=== PATIENT | female | born 1940 | race Caucasian/White ===

== ENCOUNTER 2016-12-20 17:42 | Inpatient (IN) | payer OTHER ==
--- NOTE | 2016-12-20 18:12 | PDOC ---
History of Present Illness - General History Source: Patient Exam Limitations: No Limitations - History of Present Illness Initial Comments: 12/20/16 19:05 The patient is a 76-year-old female with a significant past medical history of hypertension and diabetes, and was sent to the emergency department by her PCP for further evaluation of an abnormal EKG today. The patient states that she went to see Dr. Varma today, and he sent her to [facility] for further tests. The patient reports some chest pressure. The patient reports that the swelling in her legs may be related to a dislocated shoulder, but she has not paid much attention to the swelling. The patient denies shortness of breath, headache and dizziness. The patient denies fever, chills, nausea, vomit, diarrhea and constipation. The patient denies dysuria, frequency, urgency and hematuria. Allergies: NKDA PCP: Dr. Harpreet Fuller <Hortencia Ortez - Last Filed: 12/20/16 19:05> <Phyllis Goetz - Last Filed: 12/20/16 19:51> <Teresa Yoon - Last Filed: 12/20/16 21:03> <Nena Lee - Last Filed: 12/21/16 16:40> - General Chief Complaint: Pain, Acute Stated Complaint: PCP SENT/ADMIT/ADB PAIN Time Seen by Provider: 12/20/16 18:11 Past History <Hortencia Ortez - Last Filed: 12/20/16 19:05> <Phyllis Goezt - Last Filed: 12/20/16 19:51> <Teresa Yoon - Last Filed: 12/20/16 21:03> - Past Medical History HTN: Yes Hypercholesterolemia: Yes - Surgical History Cholecystectomy: Yes - Psycho/Social/Smoking Cessation Hx Suicidal Ideation: No Smoking History: Never smoked Information on smoking cessation initiated: No Hx Alcohol Use: No Drug/Substance Use Hx: No Substance Use Type: None <Nena Lee - Last Filed: 12/21/16 16:40> - Past Medical History Allergies/Adverse Reactions: Allergies Allergy/AdvReac Type Severity Reaction Status Date / Time No Known Allergies Allergy Verified 12/20/16 17:52 Home Medications: Ambulatory Orders Atorvastatin Ca [Lipitor] 10 mg PO HS 12/20/16 Amlodipine Besylate 5 mg PO DAILY 12/21/16 Losartan/Hydrochlorothiazide [Hyzaar 100-25 Tablet] 1 each PO DAILY 12/21/16 Review of Systems - Review of Systems Able to Perform ROS?: Yes Comments:: 12/20/16 19:05 GENERAL/CONSTITUTIONAL: No fever or chills. No weakness. HEAD, EYES, EARS, NOSE AND THROAT: No change in vision. No ear pain or discharge. No sore throat. CARDIOVASCULAR: (+) Chest pressure. No shortness of breath. RESPIRATORY: No cough, wheezing, or hemoptysis. GASTROINTESTINAL: No nausea, vomiting, diarrhea or constipation. GENITOURINARY: No dysuria, frequency, or change in urination. MUSCULOSKELETAL: No joint or muscle swelling or pain. No neck or back pain. SKIN: No rash NEUROLOGIC: No headache, vertigo, loss of consciousness, or change in strength/ sensation. ENDOCRINE: No increased thirst. No abnormal weight change. HEMATOLOGIC/LYMPHATIC: No anemia, easy bleeding, or history of blood clots. ALLERGIC/IMMUNOLOGIC: No hives or skin allergy. <Hortencia Ortez - Last Filed: 12/20/16 19:05> *Physical Exam - Vital Signs Last Vital Signs Temp Pulse Resp BP Pulse Ox 97.9 F 72 18 179/72 99 12/20/16 17:46 12/20/16 17:46 12/20/16 17:46 12/20/16 17:46 12/20/16 17:46 <Hortencia Ortez - Last Filed: 12/20/16 19:05> - Vital Signs Last Vital Signs Temp Pulse Resp BP Pulse Ox 97.9 F 72 18 179/72 99 12/20/16 17:46 12/20/16 17:46 12/20/16 17:46 12/20/16 17:46 12/20/16 17:46 <Phyllis Goetz - Last Filed: 12/20/16 19:51> - Vital Signs Last Vital Signs Temp Pulse Resp BP Pulse Ox 97.9 F 72 18 179/72 99 12/20/16 17:46 12/20/16 17:46 12/20/16 17:46 12/20/16 17:46 12/20/16 17:46 <Teresa Yoon - Last Filed: 12/20/16 21:03> - Vital Signs Last Vital Signs Temp Pulse Resp BP Pulse Ox 97.9 F 72 18 179/72 99 12/20/16 17:46 12/20/16 17:46 12/20/16 17:46 12/20/16 17:46 12/20/16 17:46 - Physical Exam Comments: GENERAL: Awake, alert, and fully oriented, in no acute distress HEAD: No signs of trauma EYES: PERRLA, EOMI, sclera anicteric, conjunctiva clear ENT: Auricles normal inspection, hearing grossly normal, nares patent, oropharynx clear without exudates. Moist mucosa NECK: Normal ROM, supple, no lymphadenopathy, JVD, or masses LUNGS: Breath sounds equal, clear to auscultation bilaterally. No wheezes, and no crackles HEART: Regular rate and rhythm, normal S1 and S2, no murmurs, rubs or gallops ABDOMEN: Soft, nontender, normoactive bowel sounds. No guarding, no rebound. No masses EXTREMITIES: Normal range of motion, 2+ pitting edema to ankles B/L. No clubbing or cyanosis. No cords, erythema, or tenderness NEUROLOGICAL: Cranial nerves II through XII grossly intact. Normal speech, normal gait SKIN: Warm, Dry, normal turgor, no rashes or lesions noted. <Nena Lee - Last Filed: 12/21/16 16:40> ED Treatment Course - LABORATORY CBC & Chemistry Diagram: 12/20/16 18:45 12/20/16 18:45 <Hortencia Ortez - Last Filed: 12/20/16 19:05> - LABORATORY CBC & Chemistry Diagram: 12/20/16 18:45 12/20/16 18:45 - ADDITIONAL ORDERS Additional order review: Laboratory Results 12/20/16 12/20/16 19:05 18:45 INR 1.14 Sodium 138 Potassium 3.7 Chloride 102 Carbon Dioxide 24 Anion Gap 12 BUN 22 H Creatinine 0.7 Creat Clearance w eGFR > 60 Random Glucose 130 H Calcium 8.9 Total Bilirubin 0.3 AST 24 ALT 26 Alkaline Phosphatase 85 Creatine Kinase 122 Troponin I < 0.02 Total Protein 7.4 Albumin 4.0 12/20/16 18:45 RBC 4.50 MCV 87.6 MCHC 33.0 RDW 14.4 MPV 9.9 Neutrophils % 71.5 Lymphocytes % 21.6 Monocytes % 5.2 Eosinophils % 1.0 Basophils % 0.7 - Medications Given in the ED: ED Medications Discontinued Medications Generic Name Dose Route Start Last Admin Trade Name Freq PRN Reason Stop Dose Admin Aspirin 325 mg 12/20/16 18:44 12/20/16 19:41 Asa - PO 12/20/16 18:45 325 mg ONCE ONE Administration <Phyllis Goetz - Last Filed: 12/20/16 19:51> - LABORATORY CBC & Chemistry Diagram: 12/20/16 18:45 12/20/16 18:45 - ADDITIONAL ORDERS Additional order review: Laboratory Results 12/20/16 12/20/16 12/20/16 20:05 19:05 18:45 INR 1.14 Sodium 138 Potassium 3.7 Chloride 102 Carbon Dioxide 24 Anion Gap 12 BUN 22 H Creatinine 0.7 Creat Clearance w eGFR > 60 Random Glucose 130 H Calcium 8.9 Total Bilirubin 0.3 AST 24 ALT 26 Alkaline Phosphatase 85 Creatine Kinase 122 Troponin I < 0.02 Total Protein 7.4 Albumin 4.0 Urine Color Straw Urine Appearance Cloudy Urine pH 5.0 Ur Specific [place] 1.014 Urine Protein Negative Urine Glucose (UA) Negative Urine Ketones Negative Urine Blood Negative Urine Nitrite Negative Urine Bilirubin Negative Urine Urobilinogen Negative Ur Leukocyte Esterase Negative 12/20/16 18:45 RBC 4.50 MCV 87.6 MCHC 33.0 RDW 14.4 MPV 9.9 Neutrophils % 71.5 Lymphocytes % 21.6 Monocytes % 5.2 Eosinophils % 1.0 Basophils % 0.7 - Medications Given in the ED: ED Medications Discontinued Medications Generic Name Dose Route Start Last Admin Trade Name Freq PRN Reason Stop Dose Admin Aspirin 325 mg 12/20/16 18:44 12/20/16 19:41 Asa - PO 12/20/16 18:45 325 mg ONCE ONE Administration <Teresa Yoon - Last Filed: 12/20/16 21:03> - LABORATORY CBC & Chemistry Diagram: 12/21/16 05:30 12/21/16 05:30 <Nena Lee - Last Filed: 12/21/16 16:40> Medical Decision Making - Medical Decision Making 12/20/16 20:45 First call placed to Dr. Ricardo at 20:44. Case discussed with Dr. Ricardo at 21:02. <Teresa Yoon - Last Filed: 12/20/16 21:03> - Medical Decision Making 12/20/16 19:[address] Goetz at shift change. Sent by Dr. Varma after she presented with chest pressure and was found to have a Wellen's sign on EKG. I have just recently started her evaluation- awaiting EKG, labs. To be admitted to [facility]. As per my discussion with Dr. Varma, I will give ASA 325 mg. If trop is positive, patient to be heparinized and receive 300 mg plavix. <Nena Lee - Last Filed: 12/21/16 16:40> *DC/Admit/Observation/Transfer - Attestations Scribe Attestion: 12/20/16 19:05 Documentation prepared by Hortencia Ortez, acting as medical anthropologist for Nena Lee MD. <Hortencia Ortez - Last Filed: 12/20/16 19:05> - Discharge Dispostion Admit: Yes <Phyllis Goetz - Last Filed: 12/20/16 19:51> <Teresa Yoon - Last Filed: 12/20/16 21:03> <Nena Lee - Last Filed: 12/21/16 16:40> Diagnosis at time of Disposition: Chest pain, Abnormal EKG - Referrals
[2016-12-20] MEDS ORDERED: ASPIRIN 325 MG TABLET PO ONE (18:44)
[2016-12-20 19:10] LABS: BASOPHIL 0.7 % (0-2.0); MCH 28.9 pg (25.7-33.7); MEAN CELL VOLUME 87.6 fl (80-96); MEAN PLT VOLUME 9.9 fl (7.5-11.1); NEUTROPHILS 71.5 % (42.8-82.8); PLATELET COUNT 241 K/MM3 (134-434); RDW 14.4 % (11.6-15.6); WHITE BLOOD COUNT 8.7 K/mm3 (4.0-10.0)
[2016-12-20] MEDS ORDERED: ASPIRIN 325 MG ENTERIC COATED TABLET (FP) ONE (19:18)
[2016-12-20 19:37] LABS: ANION GAP 12 (8-16); BILIRUBIN,TOTAL 0.3 mg/dL (0.2-1.0); CALCIUM 8.9 mg/dL (8.5-10.1); CO2 24 mmol/L (21-32); CREATININE 0.7 mg/dL (0.55-1.02); GLUCOSE,RANDOM 130 mg/dL (74-106); SGOT/AST 24 U/L (15-37); SGPT/ALT 26 U/L (12-78); TOT PROT 7.4 g/dl (6.4-8.2)
[2016-12-20 19:39] LABS: ALK PHOS 85 U/L (45-117); TROPONIN I < 0.02 ng/ml (0.00-0.05)
[2016-12-20 19:48] LABS: INR 1.14 (0.82-1.09); PROTHROMBIN TIME (PATIENT) 12.6 SEC (9.98-11.88)
[2016-12-20 20:25] LABS: URINE APPEARANCE CLOUDY; URINE BILIRUBIN NEGATIVE (NEGATIVE); URINE BLOOD NEGATIVE (NEGATIVE); URINE COLOR STRAW; URINE GLUCOSE (UA) NEGATIVE (NEGATIVE); URINE KETONE NEGATIVE (NEGATIVE); URINE LEUK ESTERASE NEGATIVE (NEGATIVE); URINE NITRITE NEGATIVE (NEGATIVE); URINE PROTEIN NEGATIVE (NEGATIVE); URINE UROBILINOGEN NEGATIVE E.U./dl (0.2-1.0)
--- NOTE | 2016-12-20 23:48 | HP ---
Admitting History and Physical - Admission History of Present Illness: Pt is a 76 y/o female w/ a h/o HTN, HLD and diabetes. Pt lost her son about 2- 3 weeks ago and presented to her PMD today bc of chest pain. She also saw her cardio(Dr. Varma) who found an abnormal EKG and sent pt to ER. Pt still has intermittent SSCP wc is nonradiating and not associated w/ any palpitations of SOB. The intensity of the pain was about 7/10. History Source: Patient - Past Medical History Cardiovascular: Yes: HTN, Hyperlipdemia Endocrine: Yes: Diabetes Mellitus - Past Surgical History Past Surgical History: Yes: Cholecystectomy - Smoking History Smoking history: Never smoked - Alcohol/Substance Use Hx Alcohol Use: No Home Medications - Allergies Allergies/Adverse Reactions: Allergies Allergy/AdvReac Type Severity Reaction Status Date / Time No Known Allergies Allergy Verified 12/20/16 17:52 - Home Medications Home Medications: Ambulatory Orders Atorvastatin Ca [Lipitor] 10 mg PO HS 12/20/16 Family Disease History - Family Disease History Family History: Unremarkable Review of Systems - Review of Systems Constitutional: reports: Lethargy, Loss of Appetite Eyes: reports: No Symptoms HENT: reports: No Symptoms Neck: reports: No Symptoms Cardiovascular: reports: Chest Pain Respiratory: reports: No Symptoms Gastrointestinal: reports: No Symptoms Genitourinary: reports: No Symptoms Physical Examination Vital Signs: Vital Signs Temperature 97.9 F 12/20/16 17:46 Pulse Rate 72 12/20/16 17:46 Respiratory Rate 18 12/20/16 17:46 Blood Pressure 179/72 12/20/16 17:46 O2 Sat by Pulse Oximetry (%) 99 12/20/16 17:46 Constitutional: Yes: Well Nourished HENT: Yes: WNL Neck: Yes: Supple Cardiovascular: Yes: WNL, Regular Rate and Rhythm Respiratory: Yes: WNL, Regular, CTA Bilaterally Gastrointestinal: Yes: WNL, Normal Bowel Sounds, Soft Musculoskeletal: Yes: WNL Edema: LLE: Trace, RLE: Trace Neurological: Yes: WNL, Alert, Oriented ...Motor Strength: WNL Problem List - Problems (1) Chest pain Assessment/Plan: Admit to tele Serial cpk/troponin Cardio consult Cont asa Check echo Check lipid level Code(s): R07.9 - CHEST PAIN, UNSPECIFIED Assessment/Plan 1.HTN Pt is not on any meds Check echo Monitor BP and may need to start antihypertensive 2.Diabetes Controlled by diet Cont sliding scale w/ insulin coverage Check HgA1c
[2016-12-21 01:07] LABS: TROPONIN I 0.03 ng/ml (0.00-0.05)
[2016-12-21 07:20] LABS: BASOPHIL 0.5 % (0-2.0); EOSINOPHIL 1.7 % (0-4.5); MCH 29.3 pg (25.7-33.7); MCHC 33.5 g/dl (32.0-36.0); MEAN CELL VOLUME 87.6 fl (80-96); MEAN PLT VOLUME 9.6 fl (7.5-11.1); NEUTROPHILS 63.2 % (42.8-82.8); PLATELET COUNT 203 K/MM3 (134-434); RDW 14.1 % (11.6-15.6); WHITE BLOOD COUNT 7.7 K/mm3 (4.0-10.0)
[2016-12-21 07:38] LABS: ALBUMIN 3.5 g/dl (3.4-5.0); ANION GAP 9 (8-16); CO2 28 mmol/L (21-32); GLUCOSE,RANDOM 120 mg/dL (74-106)
[2016-12-21 07:40] LABS: TROPONIN I 0.03 ng/ml (0.00-0.05)
[2016-12-21 07:42] LABS: ALK PHOS 76 U/L (45-117); BILIRUBIN,TOTAL 0.6 mg/dL (0.2-1.0); CREATININE 0.7 mg/dL (0.55-1.02); SGOT/AST 20 U/L (15-37); SGPT/ALT 24 U/L (12-78); TOT PROT 6.9 g/dl (6.4-8.2)
[2016-12-21] MEDS: INSULIN SLIDING SCALE (NOVOLOG) 1 VIAL SQ SCH ×5 (08:12→21:20)
[2016-12-21] MEDS ORDERED: ASPIRIN 81 MG CHEWABLE TABLETS ONE (10:01)
[2016-12-21] MEDS: ASPIRIN COATED 81 MG TABLET.EC PO SCH (10:12)
[2016-12-21] MEDS ORDERED: INSULIN (NOVOLOG) ASPART 100 UNITS/ML 10ML VIAL ONE (10:22)
--- NOTE | 2016-12-21 11:28 | PN ---
Physical Exam: SUBJECTIVE: Patient seen and examined Continues to report right quad abdominal pain Denies chest pain, nausea vomiting. OBJECTIVE: Vital Signs Period Temp Pulse Resp BP Sys/Yao Pulse Ox Last 24 Hr 98.2 F 62 20 175/76 97 GENERAL: The patient is awake, alert, and fully oriented, in no acute distress. HEAD: Normal with no signs of trauma. EYES: PERRL, extraocular movements intact, sclera anicteric, conjunctiva clear. No ptosis. ENT: Ears normal, nares patent, oropharynx clear without exudates, moist mucous membranes. NECK: Trachea midline, full range of motion, supple. LUNGS: Breath sounds equal, clear to auscultation bilaterally, no wheezes, no crackles, no accessory muscle use. HEART: Regular rate and rhythm, S1, S2 without murmur, rub or gallop. ABDOMEN: Soft, nontender, nondistended, normoactive bowel sounds, no guarding, no rebound, no hepatosplenomegaly, no masses. EXTREMITIES: 2+ pulses, warm, well-perfused, trace LE edema. NEUROLOGICAL: Cranial nerves II through XII grossly intact. Normal speech, gait not observed. PSYCH: Normal mood, normal affect. SKIN: Warm, dry, normal turgor, no rashes or lesions noted Laboratory Results - last 24 hr 12/21/16 12/21/16 12/21/16 05:30 05:30 05:30 WBC 7.7 RBC 4.23 Hgb 12.4 Hct 37.1 MCV 87.6 MCHC 33.5 RDW 14.1 Plt Count 203 MPV 9.6 Neutrophils % 63.2 Lymphocytes % 27.2 D Monocytes % 7.4 Eosinophils % 1.7 Basophils % 0.5 Sodium 138 Potassium 3.4 L Chloride 101 Carbon Dioxide 28 Anion Gap 9 BUN 17 D Creatinine 0.7 Creat Clearance w eGFR > 60 Random Glucose 120 H Hemoglobin A1c % 6.8 H Calcium 9.0 Total Bilirubin 0.6 D AST 20 ALT 24 Alkaline Phosphatase 76 Creatine Kinase Troponin I Total Protein 6.9 Albumin 3.5 12/21/16 05:30 WBC RBC Hgb Hct MCV MCHC RDW Plt Count MPV Neutrophils % Lymphocytes % Monocytes % Eosinophils % Basophils % Sodium Potassium Chloride Carbon Dioxide Anion Gap BUN Creatinine Creat Clearance w eGFR Random Glucose Hemoglobin A1c % Calcium Total Bilirubin AST ALT Alkaline Phosphatase Creatine Kinase 104 Troponin I 0.03 Total Protein Albumin Active Medications Generic Name Dose Route Start Last Admin Trade Name [place] PRN Reason Stop Dose Admin Aspirin 81 mg 12/21/16 10:00 12/21/16 10:12 Ecotrin - PO 81 mg DAILY LILI Administration Atorvastatin Calcium 10 mg 12/21/16 22:00 Lipitor - PO HS LILI Insulin Aspart 1 vial 12/21/16 07:00 12/21/16 08:12 Novolog Vial Sliding Scale - SQ 4 units ACHS LILI Administration Protocol ASSESSMENT/PLAN: 76 y/o female with PMHx of HTN, HLD sent to [facility] ED by her cardio dr woodard for ekg changes, concerning for significant CAD. The patient reports intermittent chest pain and abdominal pain. In the ER she received ASA 325 mg, UA neg and urine culture sent. She was admit to Tele to [facility] for ACS and for possible cardiac cath due to her multiple CV risk factors. 1 Chest pain:resolved -continuous Tele monitoring -enzymes x 3 neg -cardio on case-possible stress induced cardiomyopathy after recent loss of her son. -plan for possible transfer on friday for cardiac cath 2 Abnormal ECG: per cardio new T wave abnormalities -K today 3.4-repleted with Kdur 40 meq -per cardio-ECHO done shows normal LV systolic function and ekg-nsr 68bpm, possible septal infarct, T inversions V2, V3, V4, V5, V6, II, III, aVF, possible ant/lat/inf ischemia, T wave abnl are new compared to prior ekg in office. -monitor lytes and replete as needed -Tele monitoring 3 Abdominal Pain -protonix 20 mg PO daily started -colace 200 mg q day started -encourage PO fluids -tylenol prn -KUB 4 CAD -c/w asa 81 mg -c/w statin -check lipid panel 12/22 5 HTN: BP above goal -Patient reports being on 2 BP meds at home -Spoke with her pharmacy and she is on hyzaar 100/25 and norvasc 5 mg daily (rx filled 10/2016 for a 3 month supply) -Will resume her home dose of hyzaar 100/25 and norvasc 5mg starting today -low salt diet -cardio on case if BP remains uncontrolled may dc norvasc and start nifedipine 6 hyperglycemia:A1c 6.8 -fingersticks ACHS -ISS -diabetic diet Dispo-follow up tessa, plan for possible transfer Mon for cardiac cath Visit type - Emergency Visit Emergency Visit: No - New Patient This patient is new to me today: Yes Date on this admission: 12/23/16 - Critical Care Critical Care patient: No
[2016-12-21] MEDS ORDERED: LOSARTAN 50MG/HCTZ 12.5MG 1 TAB (FP) PO SCH (11:45)
--- NOTE | 2016-12-21 11:48 | CON.CARD ---
Consult Consult Specialty:: Cardiology Referred by:: ER Reason for Consultation:: Abnormal EKG - History of Present Illness Chief Complaint: sent to ER by my partner Dr. Anderson and myself for EKG changes History of Present Illness: 76 year old woman with a history of HTN, HLD seen in office yesterday found to have ekg changes concerning for significant CAD. Pt. had initially noted some intermittent chest burning sensation but then later denied and stated she only has abominal discomfort. Of note, her son 2 weeks ago after a possible seizure, possible SC and a fall with head trauma. Pt had an echo in the office yesterday that showed normal LV systolic function but due to the concerning EKG changes she was sent to the ER to rule out ACS and plan for cardiac cath. Pt. seen and examined this am in nad. denies any new complaints. denies chest pain. still c/o abdominal pain. no sob. no palpitations. no pnd or orthopnea. mild intermittent LE edema. - History Source History Provided By: Patient, Medical Record Limitations to Obtaining History: No Limitations - Past Medical History Cardio/Vascular: Yes: HTN, Hyperlipdemia Endocrine: Yes: Diabetes Mellitus - Past Surgical History Past Surgical History: Yes: Cholecystectomy - Alcohol/Substance Use Hx Alcohol Use: No - Smoking History Smoking history: Never smoked - Social History Usual Living Arrangement: With Spouse ADL: Independent History of Recent Travel: No Home Medications - Allergies Allergies/Adverse Reactions: Allergies Allergy/AdvReac Type Severity Reaction Status Date / Time No Known Allergies Allergy Verified 12/20/16 17:52 - Home Medications Home Medications: Ambulatory Orders Atorvastatin Ca [Lipitor] 10 mg PO HS 12/20/16 Family Disease History - Family Disease History Family Disease History: Heart Disease: Son Review of Systems - Review of Systems Constitutional: denies: No Symptoms, Chills, Diaphoresis, Fever, Lethargy, Loss of Appetite, Malaise, Night Sweats, Unintentional Wgt. Loss, Weakness, Other Eyes: denies: No Symptoms, Blind Spots, Blurred Vision, Double Vision, Eye Pain , Floaters, Photophobia, Recent Change in Vision, Other HENT: denies: No Symptoms, Difficult Swallowing, Ear Discharge, Ear Pain, Epistaxis, Gingival Bleeding, Hearing Loss, Mouth Swelling, Nasal Congestion, Ocular Prosthesis, Throat Pain, Toothache, Ringing in Ears, Other Neck: denies: No Symptoms, Decreased ROM, Lumps, Pain on Movement, Stiffness, Swollen Glands, Tenderness, Other Cardiovascular: reports: Other (possible chest burning). denies: No Symptoms, Chest Pain, Edema, Palpitations, Shortness of Breath Respiratory: denies: No Symptoms, Cough, Exercise Intolerance, Hemoptysis, Orthopnea, PND, Snoring, SOB, SOB on Exertion, Wheezing, Other Gastrointestinal: reports: Abdominal Pain, Bloating, Constipation. denies: No Symptoms, Diarrhea, Dysphagia, Indigestion, Melena, Nausea, Rectal Bleeding, Vomiting, Vomiting Blood, Other Genitourinary: denies: No Symptoms, Burning, Discharge, Dysuria, Flank Pain, Frequency, Hematuria, Incontinence, Lesions, Menses, Pain, Testicular Mass, Testicular Pain, Testicular Swelling, Urgency, Vaginal Bleeding, Other Breasts: denies: No Symptoms Reported, See HPI, Breast Implants, Discharge from Nipple, Lumps, Pain, Skin Changes, Other Musculoskeletal: denies: No Symptoms, Back Pain, Crepitus, Decreased ROM, Extremity Pain, Joint Pain, Joint Swelling, Muscle Pain, Muscle Cramps, Muscle Weakness, Other Integumentary: denies: No Symptoms, Blister, Bruising, Change in Color, Eczema, Erythema, Incision, Lesions, Lump, Pallor, Pruritis, Rash, Wound, Other Neurological: denies: No Symptoms, Change in LOC, Change in Speech, Confusion, Dizziness, Headache, Incoordination, Numbness, Parasthesia, Pre-Existing Deficit , Seizure, Syncope, Tremors, Unsteady Gait, Weakness, Other Endocrine: denies: No Symptoms, Excessive Sweating, Flushing, Increased Hunger, Increased Thirst, Intolerance to Cold, Intolerance to Heat, Unexplained Weight Gain, Unexplained Weight Loss, Other Hematology/Lymphatic: denies: No Symptoms, Easily Bruised, Excessive Bleeding, Swollen Glands, Other Psychiatric: denies: No Symptoms, Altered Sleep Pattern, Anxiety, Depression, Hallucinations, Panic, Paranoia, Suicidal, Other - Risk Factors Known Risk Factors: Yes: Diabetes Mellitus, Hypercholesterolemia, Hypertension Vital Signs: Vital Signs Temperature 98.2 F 12/21/16 05:36 Pulse Rate 62 12/21/16 05:36 Respiratory Rate 20 12/21/16 05:36 Blood Pressure 175/76 12/21/16 05:36 O2 Sat by Pulse Oximetry (%) 97 12/21/16 05:36 Constitutional: Yes: No Distress, Calm, Obese Eyes: Yes: WNL, Conjunctiva Clear, EOM Intact, PERRL HENT: Yes: WNL, Atraumatic, Normocephalic Neck: Yes: WNL, Supple, Trachea Midline Respiratory: Yes: WNL, Regular, CTA Bilaterally. No: Rales, Rhonchi, Wheezes Gastrointestinal: Yes: Normal Bowel Sounds, Soft, Tenderness. No: Tenderness, Epigastrium, Tenderness, Rebound Renal/: Yes: WNL Cardiovascular: Yes: WNL, Regular Rate and Rhythm. No: Bradycardia, Tachycardia , Pulse Irregular, Gallop, Rub, Varicosities JVD: No Carotid Bruit: No PMI: Non-Displaced Heart Sounds: Yes: S1, S2. No: Split S2, S3, S4, Clicks, Gallop, Rub, Bruit Murmur: No: Systolic Murmur, Diastolic Murmur Musculoskeletal: Yes: WNL Extremities: Yes: WNL Edema: No Peripheral Pulses WNL: Yes Peripheral Pulses: 2+ Left Doralis Pedis, 2+ Right Dorsalis Pedis Integumentary: Yes: WNL Neurological: Yes: WNL, Alert, Oriented, Cran Nerves II-XII Intact ...Motor Strength: WNL Psychiatric: Yes: WNL, Alert, Oriented - Other Data Labs, Other Data: CBC, BMP 12/21/16 05:30 12/21/16 05:30 INR, PTT INR 1.14 (0.82-1.09) 12/20/16 19:05 Troponin, BNP 12/21/16 05:30 Troponin I 0.03 Troponin, BNP 12/21/16 05:30 Troponin I 0.03 ekg-nsr 68bpm, possible septal infarct, T inversions V2, V3, V4, V5, V6, II, III , aVF, possible ant/lat/inf ischemia, T wave abnl are new compared to prior ekg in office Echo: Report Reviewed, Image Reviewed Imaging - Results Chest X-ray: Report Reviewed, Image Reviewed EKG: Report Reviewed, Image Reviewed Other: Report Reviewed, Image Reviewed (tele-nsr, no arrhythmias) Problem List - Problems (1) Abnormal EKG Code(s): R94.31 - ABNORMAL ELECTROCARDIOGRAM [ECG] [EKG] (2) Chest pain Code(s): R07.9 - CHEST PAIN, UNSPECIFIED Assessment/Plan 76 year old woman with a history of HTN, HLD seen in office yesterday found to have ekg changes concerning for significant CAD. Pt. had initially noted some intermittent chest burning sensation but then later denied and stated she only has abominal discomfort. Of note, her son 2 weeks ago after a possible seizure, possible SC and a fall with head trauma. Pt had an echo in the office yesterday that showed normal LV systolic function but due to the concerning EKG changes she was sent to the ER to rule out ACS and plan for cardiac cath. Abnormal EKG-T wave changes new compared to prior ekgs -nonspecific c/o chest burning -multiple cardiac risk factors -stress induced cardiomyopathy from her son passing away considered but echo yesterday showed normal LV systolic function -cardiac enzymes wnl, although troponin .03 (increased from <.02 but still not above upper limit normal) -would benefit from a definitive assessment of coronaries, will plan to transfer for cardiac catheterization, likely on friday -cont tele monitoring for now -cont asa and lipitor -does not require full AC at this point HTN-uncontrolled -cont Losartan 100mg daily, HCTZ 25mg daily, and norvasc 5mg daily for now -if remains uncontrolled will plan to change norvasc to nifedipine and uptitrate as needed HLD -cont lipitor
[2016-12-21 13:22] VITALS: BMI 37.7
[2016-12-21] MEDS: amLODIPine BESYLATE 5 MG TABLET (FP) PO SCH (13:25)
[2016-12-21] MEDS: LOSARTAN POTASSIUM 50 MG TABLET (FP) PO SCH (13:25)
[2016-12-21] MEDS: HYDROCHLOROTHIAZIDE 25 MG TABLET (FP) PO SCH (13:26)
[2016-12-21] MEDS ORDERED: amLODIPine BESYLATE 5 MG TABLET (FP) ONE (13:34)
[2016-12-21] MEDS ORDERED: HYDROCHLOROTHIAZIDE 25 MG TABLET (FP) ONE (13:35)
[2016-12-21] MEDS ORDERED: LOSARTAN POTASSIUM 25 MG TABLET ONE (13:36)
[2016-12-21] MEDS ORDERED: POTASSIUM CHLORIDE TABS 20 MEQ TABLET.ER (FP) PO ONE (15:14)
[2016-12-21] MEDS ORDERED: ACETAMINOPHEN 325 MG TABLET (FP) PO PRN (15:51)
[2016-12-21] MEDS ORDERED: POTASSIUM CHLORIDE 40 MEQ/30 ML UNIT DOSE CUP ONE (17:29)
[2016-12-21] MEDS: ATORVASTATIN CA 10 MG TABLET (FP) PO SCH (21:22)
[2016-12-21 22:02] LABS: TROPONIN I 0.02 ng/ml (0.00-0.05)
[2016-12-22] MEDS: INSULIN SLIDING SCALE (NOVOLOG) 1 VIAL SQ SCH ×4 (06:22→21:42)
[2016-12-22 07:44] LABS: BASOPHIL 0.4 % (0-2.0); EOSINOPHIL 1.9 % (0-4.5); MCH 29.5 pg (25.7-33.7); MCHC 33.6 g/dl (32.0-36.0); MEAN CELL VOLUME 87.8 fl (80-96); MEAN PLT VOLUME 9.3 fl (7.5-11.1); NEUTROPHILS 62.6 % (42.8-82.8); PLATELET COUNT 197 K/MM3 (134-434); RDW 14.3 % (11.6-15.6); WHITE BLOOD COUNT 6.8 K/mm3 (4.0-10.0)
[2016-12-22 08:23] LABS: CHOLESTEROL 170 mg/dL (50-200)
[2016-12-22 08:26] LABS: LDL CHOLESTEROL (ONLY SJRH) 97 mg/dL (5-100)
[2016-12-22 08:33] LABS: ALBUMIN 3.5 g/dl (3.4-5.0); ALK PHOS 71 U/L (45-117); ANION GAP 9 (8-16); BILIRUBIN,TOTAL 0.5 mg/dL (0.2-1.0); CALCIUM 9.2 mg/dL (8.5-10.1); CO2 29 mmol/L (21-32); CREATININE 0.9 mg/dL (0.55-1.02); GLUCOSE,RANDOM 122 mg/dL (74-106); SGOT/AST 19 U/L (15-37); SGPT/ALT 23 U/L (12-78); TOT PROT 6.7 g/dl (6.4-8.2)
[2016-12-22] MEDS: amLODIPine BESYLATE 5 MG TABLET (FP) PO SCH (09:25)
[2016-12-22] MEDS: PANTOPRAZOLE 20 MG TABLET (FP) PO SCH (09:25)
[2016-12-22] MEDS: ASPIRIN COATED 81 MG TABLET.EC PO SCH (09:25)
[2016-12-22] MEDS: HYDROCHLOROTHIAZIDE 25 MG TABLET (FP) PO SCH (09:25)
[2016-12-22] MEDS: LOSARTAN POTASSIUM 50 MG TABLET (FP) PO SCH (09:25)
[2016-12-22] MEDS: DOCUSATE SODIUM 100 MG CAPSULE (FP) PO SCH (09:26)
--- NOTE | 2016-12-22 10:24 | PN ---
Progress Note, Physician History of Present Illness: seen and examined today in nad. still c/o abominal discomfort. no chest pain. no overnight events. or new complaints. - Current Medication List Current Medications: Active Medications Acetaminophen (Tylenol -) 650 mg PO Q6H PRN PRN Reason: FEVER OR PAIN Amlodipine Besylate (Norvasc -) 5 mg PO DAILY [facility] Last Admin: 12/22/16 09:25 Dose: 5 mg Aspirin (Ecotrin -) 81 mg PO DAILY [facility] Last Admin: 12/22/16 09:25 Dose: 81 mg Atorvastatin Calcium (Lipitor -) 10 mg PO HS [facility] Last Admin: 12/21/16 21:22 Dose: 10 mg Docusate Sodium (Colace -) 200 mg PO DAILY [facility] Last Admin: 12/22/16 09:26 Dose: 200 mg Hydrochlorothiazide (Hctz -) 25 mg PO DAILY [facility] Last Admin: 12/22/16 09:25 Dose: 25 mg Insulin Aspart (Novolog Vial Sliding Scale -) 1 vial SQ ACHS [facility] PRN Reason: Protocol Last Admin: 12/22/16 06:22 Dose: Not Given Losartan Potassium (Cozaar -) 100 mg PO DAILY [facility] Last Admin: 12/22/16 09:25 Dose: 100 mg Pantoprazole Sodium (Protonix -) 20 mg PO DAILY [facility] Last Admin: 12/22/16 09:25 Dose: 20 mg - Objective Vital Signs: Vital Signs Temperature 98.9 F 12/22/16 10:00 Pulse Rate 70 12/22/16 10:00 Respiratory Rate 20 12/22/16 10:00 Blood Pressure 130/60 12/22/16 10:00 O2 Sat by Pulse Oximetry (%) 96 12/21/16 21:00 Constitutional: Yes: No Distress, Calm, Obese Eyes: Yes: WNL, Conjunctiva Clear, EOM Intact, PERRL HENT: Yes: WNL, Atraumatic, Normocephalic Neck: Yes: WNL, Supple, Trachea Midline Cardiovascular: Yes: Regular Rate and Rhythm, S1, S2. No: Bradycardia, Tachycardia, Pulse Irregular, Bruit, JVD, Gallop, Murmur, Rub, S3, S4, Varicosities Respiratory: Yes: WNL, Regular, CTA Bilaterally. No: Rales, Rhonchi, Wheezes Gastrointestinal: Yes: Normal Bowel Sounds, Soft, Tenderness. No: Distention Musculoskeletal: Yes: WNL Extremities: Yes: WNL Edema: No Peripheral Pulses WNL: Yes Peripheral Pulses: Left Doralis Pedis: 2+, Right Dorsalis Pedis: 2+ Integumentary: Yes: WNL Neurological: Yes: WNL, Alert, Oriented, Cran Nerves II-XII Intact ...Motor Strength: WNL Psychiatric: Yes: WNL, Alert, Oriented Labs: CBC, BMP 12/22/16 05:20 12/22/16 05:20 INR, PTT INR 1.14 (0.82-1.09) 12/20/16 19:05 - ....Imaging Chest X-ray: Report Reviewed, Image Reviewed EKG: Report Reviewed, Image Reviewed Other: Report Reviewed, Image Reviewed (tele-sinus curtis 40-50s, apcs, short PSVT) Problem List - Problems (1) Abnormal EKG Code(s): R94.31 - ABNORMAL ELECTROCARDIOGRAM [ECG] [EKG] (2) Chest pain Code(s): R07.9 - CHEST PAIN, UNSPECIFIED Assessment/Plan 76 year old woman with a history of HTN, HLD seen in office yesterday found to have ekg changes concerning for significant CAD. Pt. had initially noted some intermittent chest burning sensation but then later denied and stated she only has abominal discomfort. Of note, her son 2 weeks ago after a possible seizure, possible [place] and a fall with head trauma. Pt had an echo in the office yesterday that showed normal LV systolic function but due to the concerning EKG changes she was sent to the ER to rule out ACS and plan for cardiac cath. Abnormal EKG-T wave changes new compared to prior ekgs, with multiple cardiac risk factors -nonspecific c/o chest burning as outpatient, none since admission -stress induced cardiomyopathy from her son passing away considered but echo yesterday showed normal LV systolic function -cardiac enzymes did not trend up -plan to transfer for cardiac catheterization tomorrow to [facility] -cont tele monitoring for now -cont asa and lipitor -does not require full AC at this point Abdominal pain-unclear etiology -will obtain a GI evaluation today -Abd Xray showed nothing significant HTN-controlled -cont Losartan 100mg daily, HCTZ 25mg daily, and norvasc 5mg daily HLD -cont lipitor
--- NOTE | 2016-12-22 21:35 | PN ---
Progress Note, Physician History of Present Illness: No further chest pain today ?epigastric discomfort - Current Medication List Current Medications: Active Medications Acetaminophen (Tylenol -) 650 mg PO Q6H PRN PRN Reason: FEVER OR PAIN Amlodipine Besylate (Norvasc -) 5 mg PO DAILY [facility] Last Admin: 12/22/16 09:25 Dose: 5 mg Aspirin (Ecotrin -) 81 mg PO DAILY [facility] Last Admin: 12/22/16 09:25 Dose: 81 mg Atorvastatin Calcium (Lipitor -) 10 mg PO HS [facility] Last Admin: 12/21/16 21:22 Dose: 10 mg Docusate Sodium (Colace -) 200 mg PO DAILY [facility] Last Admin: 12/22/16 09:26 Dose: 200 mg Hydrochlorothiazide (Hctz -) 25 mg PO DAILY [facility] Last Admin: 12/22/16 09:25 Dose: 25 mg Insulin Aspart (Novolog Vial Sliding Scale -) 1 vial SQ ACHS [facility] PRN Reason: Protocol Last Admin: 12/22/16 16:52 Dose: Not Given Losartan Potassium (Cozaar -) 100 mg PO DAILY [facility] Last Admin: 12/22/16 09:25 Dose: 100 mg Pantoprazole Sodium (Protonix -) 20 mg PO DAILY [facility] Last Admin: 12/22/16 09:25 Dose: 20 mg - Objective Vital Signs: Vital Signs Temperature 98.4 F 12/22/16 15:04 Pulse Rate 68 12/22/16 15:04 Respiratory Rate 20 12/22/16 15:04 Blood Pressure 129/69 12/22/16 15:04 O2 Sat by Pulse Oximetry (%) 96 12/22/16 09:00 Constitutional: Yes: Well Nourished Neck: Yes: Supple Cardiovascular: Yes: WNL, Regular Rate and Rhythm Respiratory: Yes: WNL, Regular, CTA Bilaterally Gastrointestinal: Yes: WNL, Normal Bowel Sounds, Soft, Abdomen, Obese Labs: CBC, BMP 12/22/16 05:20 12/22/16 05:20 INR, PTT INR 1.14 (0.82-1.09) 12/20/16 19:05 Problem List - Problems (1) Chest pain Assessment/Plan: Serial cpk/troponin have been normal Abnormal EKG Transfer for cardiac cath in am Code(s): R07.9 - CHEST PAIN, UNSPECIFIED
[2016-12-22] MEDS: ATORVASTATIN CA 10 MG TABLET (FP) PO SCH (21:41)
--- NOTE | 2016-12-22 23:40 | EKG ---
Test Reason : Blood Pressure : / mmHG Vent. Rate : 068 BPM Atrial Rate : 068 BPM P-R Int : 198 ms QRS Dur : 104 ms QT Int : 492 ms P-R-T Axes : 058 -28 -81 degrees QTc Int : 523 ms NORMAL SINUS RHYTHM ANTERIOR INFARCT , AGE UNDETERMINED T WAVE ABNORMALITY, CONSIDER INFEROLATERAL ISCHEMIA PROLONGED QT ABNORMAL ECG NO PREVIOUS ECGS AVAILABLE Confirmed by RICARDO LARA MD ([id number]) on 12/22/2016 11:40:04 PM Referred By: Confirmed By:RICARDO LARA MD
[2016-12-23] MEDS: INSULIN SLIDING SCALE (NOVOLOG) 1 VIAL SQ SCH (06:05)
[2016-12-23 08:52] VITALS: TEMP 98.1
[2016-12-23] MEDS: DOCUSATE SODIUM 100 MG CAPSULE (FP) PO SCH (09:36)
[2016-12-23] MEDS: PANTOPRAZOLE 20 MG TABLET (FP) PO SCH (09:36)
[2016-12-23] MEDS: HYDROCHLOROTHIAZIDE 25 MG TABLET (FP) PO SCH (09:37)
[2016-12-23] MEDS: amLODIPine BESYLATE 5 MG TABLET (FP) PO SCH (09:37)
[2016-12-23] MEDS: LOSARTAN POTASSIUM 50 MG TABLET (FP) PO SCH (09:37)
[2016-12-23] MEDS: ASPIRIN COATED 81 MG TABLET.EC PO SCH (09:43)
[2016-12-23 09:56] VITALS: BP 112/65; PULSE 78
--- NOTE | 2016-12-23 11:53 | PN ---
Progress Note, Physician History of Present Illness: seen and examined today in [facility]. no overnight events. no new complaints. still has abdominal discomfort. - Current Medication List Current Medications: Active Medications Acetaminophen (Tylenol -) 650 mg PO Q6H PRN PRN Reason: FEVER OR PAIN Amlodipine Besylate (Norvasc -) 5 mg PO DAILY [facility] Last Admin: 12/23/16 09:37 Dose: 5 mg Aspirin (Ecotrin -) 81 mg PO DAILY [facility] Last Admin: 12/23/16 09:43 Dose: 81 mg Atorvastatin Calcium (Lipitor -) 10 mg PO HS [facility] Last Admin: 12/22/16 21:41 Dose: 10 mg Docusate Sodium (Colace -) 200 mg PO DAILY [facility] Last Admin: 12/23/16 09:36 Dose: 200 mg Hydrochlorothiazide (Hctz -) 25 mg PO DAILY [facility] Last Admin: 12/23/16 09:37 Dose: 25 mg Insulin Aspart (Novolog Vial Sliding Scale -) 1 vial SQ ACHS [facility] PRN Reason: Protocol Last Admin: 12/23/16 06:05 Dose: Not Given Losartan Potassium (Cozaar -) 100 mg PO DAILY [facility] Last Admin: 12/23/16 09:37 Dose: 100 mg Pantoprazole Sodium (Protonix -) 20 mg PO DAILY [facility] Last Admin: 12/23/16 09:36 Dose: 20 mg - Objective Vital Signs: Vital Signs Temperature 98.1 F 12/23/16 08:51 Pulse Rate 78 12/23/16 09:56 Respiratory Rate 20 12/23/16 09:00 Blood Pressure 112/65 12/23/16 09:56 O2 Sat by Pulse Oximetry (%) 96 12/23/16 09:00 Constitutional: Yes: No Distress, Calm, Obese Eyes: Yes: WNL, Conjunctiva Clear, EOM Intact, PERRL HENT: Yes: WNL, Atraumatic, Normocephalic Neck: Yes: WNL, Supple, Trachea Midline Cardiovascular: Yes: Bradycardia, S1, S2. No: WNL, Regular Rate and Rhythm, Tachycardia, Pulse Irregular, Bruit, JVD, Gallop, Murmur, Rub, S3, S4, Varicosities Respiratory: Yes: WNL, Regular, CTA Bilaterally. No: Rales, Rhonchi, Wheezes Gastrointestinal: Yes: Normal Bowel Sounds, Soft, Tenderness. No: Distention Musculoskeletal: Yes: WNL Extremities: Yes: WNL Edema: No Peripheral Pulses WNL: Yes Peripheral Pulses: Left Doralis Pedis: 2+, Right Dorsalis Pedis: 2+ Integumentary: Yes: WNL Neurological: Yes: WNL, Alert, Oriented, Cran Nerves II-XII Intact ...Motor Strength: WNL Psychiatric: Yes: WNL, Alert, Oriented Labs: CBC, BMP 12/22/16 05:20 12/22/16 05:20 INR, PTT INR 1.14 (0.82-1.09) 12/20/16 19:05 - ....Imaging Chest X-ray: Report Reviewed, Image Reviewed EKG: Report Reviewed, Image Reviewed Other: Report Reviewed, Image Reviewed (tele-sinus curtis 40-50s, no sig arrhythmia) Problem List - Problems (1) Abnormal EKG Code(s): R94.31 - ABNORMAL ELECTROCARDIOGRAM [ECG] [EKG] (2) Chest pain Code(s): R07.9 - CHEST PAIN, UNSPECIFIED Assessment/Plan 76 year old woman with a history of HTN, HLD seen in office yesterday found to have ekg changes concerning for significant CAD. Pt. had initially noted some intermittent chest burning sensation but then later denied and stated she only has abominal discomfort. Of note, her son 2 weeks ago after a possible seizure, possible [place] and a fall with head trauma. Pt had an echo in the office yesterday that showed normal LV systolic function but due to the concerning EKG changes she was sent to the ER to rule out ACS and plan for cardiac cath. Abnormal EKG-T wave changes new compared to prior ekgs, with multiple cardiac risk factors -nonspecific c/o chest burning as outpatient, none since admission -stress induced cardiomyopathy from her son passing away considered but echo yesterday showed normal LV systolic function -cardiac enzymes did not trend up -plan to transfer for cardiac catheterization today to [facility] -cont asa and lipitor -outpatient follow up after cardiac cath Abdominal pain-unclear etiology -GI evaluation pending, if not seen prior to transfer can be seen as outpatient -Abd Xray showed nothing significant HTN-controlled, low normal -hold anti-htn meds this am -will likely need to re-adjust home anti-htn regimen after cardiac cath HLD -cont lipitor
== END 2016-12-23 12:31 | disposition short-term general hospital (02) | DRG 313 ==
LOC: JER 17:42 → JERBED 20:26 → UNDOADMIN 20:26 → JERBED 12-21 02:49 → J4W 12-21 14:16
PROVIDERS: ADMIT Internal Medicine; ATTEND Internal Medicine
DX: R07.9 Chest pain, unspecified (principal); R94.31 Abnormal electrocardiogram [ECG] [EKG]; I10 Essential (primary) hypertension; E11.65 Type 2 diabetes mellitus with hyperglycemia
CPT/HCPCS: 36415; 71010-TC; 74000-TC; 80053; 80061; 81003; 82550; 83036; 83721; 84484; 85025; 85610; 87086; 93005; 93010; 93306-TC; 99285-25

== ENCOUNTER 2021-08-02 15:47 | Emergency (ER) | payer OTHER ==
[2021-08-02 16:10] VITALS: TEMP 98.7; BMI 36.5
[2021-08-02 18:31] LABS: CHLORIDE 106 mmol/L (98-107); SODIUM 139 mmol/L (136-145)
[2021-08-02 18:34] LABS: ALBUMIN 3.8 g/dl (3.4-5.0); ANION GAP 7 MMOL/L (8-16); BLOOD UREA NITROGEN 12.7 mg/dL (7-18); CALCIUM 9.1 mg/dL (8.5-10.1); CO2 26 mmol/L (21-32)
[2021-08-02 18:35] LABS: GLUCOSE,RANDOM 104 mg/dL (74-106)
[2021-08-02 18:37] LABS: CREATININE 0.7 mg/dL (0.55-1.3); SGOT/AST 29 U/L (15-37); SGPT/ALT 24 U/L (13-61)
[2021-08-02 18:39] LABS: BILIRUBIN,TOTAL 0.5 mg/dL (0.2-1); TOT PROT 7.6 g/dl (6.4-8.2)
[2021-08-02 18:40] LABS: ALK PHOS 101 U/L (45-117)
[2021-08-02 18:58] VITALS: BP 177/67
[2021-08-02 19:14] VITALS: PULSE 74
== END 2021-08-02 19:14 | disposition home or self-care (01) ==
LOC: JER 15:47
DX: I10 Essential (primary) hypertension (principal)
CPT/HCPCS: 36415; 80053; 82550; 82553; 84484; 93005; 93010; 99284-25